=== PATIENT | female | born 2000 | race Caucasian/White ===

== ENCOUNTER 2024-11-10 16:55 | Emergency (ER) | payer BC, MEDICAID, SELFPAY ==
[2024-11-10 17:00] VITALS: BP 178/141; PULSE 110; RESP 16; TEMP 36.6; O2SAT 97; BMI 42.7
[2024-11-10 18:34] LABS: Basophils % 0.4 %; Eosinophils # 0.1 10^3/uL (0.0-0.8); Eosinophils % 0.6 %; Hematocrit 39.7 % (36-47); Lymphocytes # 2.5 10^3/uL (0.8-4.8); Lymphocytes % 29.3 %; Mean Corpuscular HGB Conc 33.5 g/dL (30-55); Mean Corpuscular Hemoglobin 28.5 pg (27-33); Mean Platelet Volume 9.3 fL (7.4-10.4); Monocytes # 0.5 10^3/uL (0.2-0.9); Monocytes % 5.7 %; Neutrophils # 5.47 10^3/uL (1.8-7.7); Neutrophils % 63.8 %; Nucleated Red Blood Cells % 0 %; Platelet Count 307 10^3/cmm (157-399); Red Blood Count 4.67 10^6/uL (3.85-5.65); Red Cell Distribution Width 12.7 % (12.1-15.1); White Blood Count 8.57 10^3/uL (3.29-11.43)
[2024-11-10 18:36] VITALS: BP 134/77; PULSE 90; O2SAT 97
--- NOTE | 2024-11-10 18:38 | CTR_ITS ---
PROCEDURE INFORMATION: Exam: CT Abdomen And Pelvis With Contrast Exam date and time: 11/10/2024 6:59 PM Age: 24 years old Clinical indication: Abdominal pain; Localized; Right; Prior surgery; Surgery date: 6+ months; Surgery type: Gb; C/O RT sided abd pain; Additional info: Rlq pain TECHNIQUE: Imaging protocol: Computed tomography of the abdomen and pelvis with contrast. Radiation optimization: All CT scans at this facility use at least one of these dose optimization techniques: automated exposure control; mA and/or kV adjustment per patient size (includes targeted exams where dose is matched to clinical indication); or iterative reconstruction. Contrast material: OMNI 350; Contrast volume: 100 ml; Contrast route: INTRAVENOUS (IV); COMPARISON: No relevant prior studies available. RADIATION DOSE METRICS: Total DLP (mGy-cm): 979.33 FINDINGS: Liver: Normal. No mass. Gallbladder and biliary ducts: There has been prior cholecystectomy. Pancreas: Normal. No ductal dilation. Spleen: Normal. No splenomegaly. Adrenal glands: Normal. No mass. Kidneys and ureters: Normal. No hydronephrosis. Stomach and bowel: Unremarkable. No obstruction. No mucosal thickening. Appendix: No evidence of appendicitis. Intraperitoneal space: Unremarkable. No free air. No significant fluid collection. Vasculature: Unremarkable. No abdominal aortic aneurysm. Lymph nodes: Unremarkable. No enlarged lymph nodes. Urinary bladder: Unremarkable as visualized. Reproductive: Unremarkable as visualized. Bones/joints: Unremarkable. No acute fracture. Soft tissues: Unremarkable. CT/CT abdomen pelvis w con* [id number] IMPRESSION: 1. No acute intra-abdominal process seen. 2. Prior cholecystectomy.
[2024-11-10 18:45] VITALS: RESP 18; O2SAT 98
[2024-11-10] MEDS: ondansetron 2 mg/ML SDV 2 mL 8 MG IVP (18:45)
[2024-11-10] MEDS: morphine 4 mg/mL SDV 1 mL IVP (18:45)
[2024-11-10 18:46] LABS: HCG, Serum Qual Negative (Negative)
[2024-11-10 18:49] LABS: Bacteria Urine Trace /hpf; Hyaline Casts Urine 1.65 /lpf; RBC Urine >100 /hpf (0-2); WBC Urine 0-5 /hpf (0-5)
[2024-11-10 18:51] LABS: Add Urine Microscopic? YES; Bilirubin Urine Neg (Negative); Blood Urine 3+ (Negative); Glucose Urine UA Norm (Normal); Ketones Urine 1+ (Negative); Leukocyte Esterase Urine Trace (Negative); Nitrate Urine Negative (Negative); Protein Urine Trace (Negative); Urine Appearance Clear (CLEAR); Urine Color Yellow (Yellow); Urobilinogen Urine Norm (Negative); pH Urine 5 (5-7)
[2024-11-10 18:52] LABS: Alanine Aminotransferase 23 U/L (0-33); Albumin Level 4.4 g/dL (3.5-5.2); Alkaline Phosphatase 62 U/L (35-105); Anion Gap 17.6 (5-19); Aspartate Amino Transferase 15 U/L (0-32); Blood Urea Nitrogen 6 mg/dL (6-20); Carbon Dioxide 21 mmol/L (22-29); Chloride 107 mmol/L (98-107); Creatinine Clr Calc Pharmacy 197.4109; Globulin 3.2 g/dL (1.3-4.6); Glomerular Filtration Rate 122.8 mL/min (90-130); Glucose 105 mg/dL (65-115); Lipase 13 U/L (13-60); Osmolality Calculated 292 mOsm/kg (285-295); Potassium 3.6 mmol/L (3.5-5.1); Sodium 142 mmol/L (136-145); Total Bilirubin 0.4 mg/dL (0.15-1.2); Total Protein 7.6 g/dL (6.6-8.7)
[2024-11-10] MEDS: iohexol 350 mg/mL 500 mL Btl (per mL) IV (19:00)
--- NOTE | 2024-11-10 19:19 | ED_ITS ---
HPI - Abdominal Pain 2 General: Chief Complaint: Abdominal Pain Stated Complaint: abd pain sent by Time Seen by Provider: 11/10/24 18:08 Source: patient Mode of arrival: ambulatory Limitations: no limitations History of Present Illness: Patient is a 24-year-old biological female presenting to the emergency department complaining of acute on chronic right sided abdominal pain. Patient states has been dealing with abdominal pain for months now, however this morning it especially worsened to the right side. Initially went to urgent care but was sent over here due to concerns of this being the appendix. However patient is known to me that the pain is to the right upper quadrant, states that she has had the gallbladder removed in the past. Noting 6-7 episodes of vomiting today associated with nausea, states that they chronically have diarrhea but this is not new. No fever, diaphoresis, anorexia, or other reported symptoms at this time. States that the pain has been intermittent throughout the day, will alternate between sharp/stabbing and dull/aching. No reported specific alleviating or exacerbating factors. Vitals unremarkable at time of examination. Stating that she is currently on her period. MD elicited complaint: abdominal pain Onset (ago): hour(s) Pain Consistency: intermittent Location: RUQ and RLQ Severity: severe Quality: stabbing, aching, sharp and dull Radiation: back Exacerbating factors: nothing Relieving factors: nothing Associated Symptoms: Reports diarrhea, nausea and vomiting; Denies bloating, change in stool character, chills, constipation, dysuria, fever(s) and hematochezia Related Data Home Medications ?Medication ?Instructions ?Recorded ?Confirmed hydroxyzine HCl 50 mg tablet 50 mg PO BID PRN 11/10/24 11/10/24 Allergies Allergy/AdvReac Type Severity Reaction Status Date / Time No Known Allergies Allergy Verified 11/10/24 16:35 Review of Systems 2 General: Reports: 10 or more systems reviewed and unremarkable except in HPI and below Const: Denies: fever(s), chills, change in appetite, change in weight or diaphoresis ENMT: Denies: throat pain or hoarseness Card: Denies: chest pain, palpitations or lightheadedness Resp: Denies: dyspnea, productive cough or wheezing GI: Reports: abdominal pain, nausea, vomiting and diarrhea; Denies: constipation, bloating, change in stool character or hematochezia : Denies: flank pain, difficulty voiding, dysuria, urinary frequency or urinary urgency Musc: Reports: back pain; Denies: neck pain Skin/Breast: Denies: rash or new lesions Neuro: Denies: headache(s) or dizziness PFSH ED 2 PFSH: Social History Smoking and tobacco/nicotine status: current every day tobacco/nicotine user Physical Exam 2 Const: COMMON NORMALS: no acute distress, patient oriented x3, no limitations, alert and well nourished GENERAL APPEARANCE: cooperative NUTRITIONAL APPEARANCE: obese ORIENTATION/CONSCIOUSNESS: Yes awake HENMT: COMMON NORMALS: normocephalic, atraumatic, hearing grossly normal bilaterally, external ears normal, Normal external nose present, Normal nasal mucous membranes and turbinates present and moist oral mucous membranes HEAD & SCALP: normocephalic and atraumatic NOSE: Normal external nose present and Normal nasal mucous membranes and turbinates present EXTERNAL EAR: Yes external ears normal Eye: COMMON NORMALS: Equal, round and reactive pupils present, EOMs intact bilaterally, conjunctivae normal and normal visual scott by confrontation C ONJUNCTIVA: Yes conjunctivae normal PUPIL: Yes Equal, round and reactive pupils present Neck/C-Spine: COMMON NORMALS: full ROM, supple, no meningeal signs and no JVD Resp: COMMON NORMALS: normal respiratory effort, No retractions, No use of accessory muscles and clear to auscultation bilaterally AUSCULTATION: clear to auscultation bilaterally, no crackles, no rales, no rhonchi and no wheezes Cardio: COMMON NORMALS: no JVD, regular rate, regular rhythm, S1 normal heart sound present, S2 normal heart sound present, No gallops present (Cardio), No clicks present (Cardio), No murmurs present (Cardio), No rub (Cardio) and Peripheral pulses 2+ throughout RATE: regular rate RHYTHM: regular rhythm HEART SOUNDS: S1 normal heart sound present and S2 normal heart sound present PERIPHERAL PULSES: Peripheral pulses 2+ throughout GI: COMMON NORMALS: Normal to inspection, nondistended, normoactive bowel sounds present, Soft to palpation, No hepatosplenomegaly present and no masses INSPECTION: Yes central obesity AUSCULTATION: Yes normoactive bowel sounds PALPATION: Yes Soft to palpation, Yes Tenderness to palpation present (GI) Details: RLQ and RUQ, No Guarding due to palpation present (GI), No Rigid due to palpation and Yes No hepatosplenomegaly present RECTAL EXAM: deferred : COMMON NORMALS: Yes no CVA tenderness BLADDER/KIDNEY EXAM: Yes no CVA tenderness Back/Pelvis: COMMON NORMALS: no CVA tenderness Extremity: COMMON NORMALS: normal to inspection and full ROM Neuro: COMMON NORMALS: patient oriented x3, moves all extremities, no focal motor deficits and no sensory deficits noted SENSORIUM/ORIENTATION: Yes alert MENINGEAL SIGNS: Yes no meningeal signs Psych: COMMON NORMALS: mental status grossly normal, cooperative and speech normal SPEECH: Yes normal speech Skin: COMMON NORMALS: no rashes or lesions noted GENERAL SKIN EXAM: no rashes or lesions noted Course 2 Vital Signs: Vital signs: Vital Signs Temperature 97.8 F 11/10/24 17:00 Pulse Rate 89 11/10/24 20:00 Respiratory Rate 18 11/10/24 18:45 Blood Pressure 109/85 11/10/24 20:00 Pulse Oximetry 96 11/10/24 20:00 Oxygen Delivery Me thod Room Air 11/10/24 20:00 MDM - Abdominal Pain Medical Decision Making Patient presented complaining of right-sided abdominal pain, history of cholecystectomy. Tender to palpation of the right side, rest of exam normal and vitals have been unremarkable. Her lab work was all normal, urinalysis unremarkable other than blood as she is currently on her menstrual cycle. CT did not show any acute findings. Ultimately unknown what is causing the pain, does not appear to be surgical or infectious and in no need of further evaluation here in the ED. Did encourage her to follow-up with her regular doctor, GI soft diet and to return with any new or worsening. Verbalized understanding to return precautions. Lab Data 11/10/24 18:20 11/10/24 18:20 Labs/Radiology: Radiology Impressions Abdomen/Pelvis CT 11/10/24 18:38 IMPRESSION: 1. No acute intra-abdominal process seen. 2. Prior cholecystectomy. Laboratory Results WBC 8.57 10^3/uL (3.29-11.43) 11/10/24 18:20 RBC 4.67 10^6/uL (3.85-5.65) 11/10/24 18:20 Hgb 13.30 g/dL (11.27-16.99) 11/10/24 18:20 Hct 39.7 % (36-47) 11/10/24 18:20 MCV 85.0 fl (85-98) 11/10/24 18:20 MCH 28.5 pg (27-33) 11/10/24 18:20 MCHC 33.5 g/dL (30-55) 11/10/24 18:20 RDW 12.7 % (12.1-15.1) 11/10/24 18:20 Plt Count 307 10^3/cmm (157-399) 11/10/24 18:20 MPV 9.3 fL (7.4-10.4) 11/10/24 18:20 Neut % (Auto) 63.8 % 11/10/24 18:20 Lymph % (Auto) 29.3 % 11/10/24 18:20 Gilliam % (Auto) 5.7 % 11/10/24 18:20 Eos % (Auto) 0.6 % 11/10/24 18:20 Baso % (Auto) 0.4 % 11/10/24 18:20 Neut # (Auto) 5.47 10^3/uL (1.8-7.7) 11/10/24 18:20 Lymph # (Auto) 2.5 10^3/uL (0.8-4.8) 11/10/24 18:20 Gilliam # (Auto) 0.5 10^3/uL (0.2-0.9) 11/10/24 18:20 Eos # (Auto) 0.1 10^3/uL (0.0-0.8) 11/10/24 18:20 Baso # (Auto) 0.0 10^3/uL (0.0-0.1) 11/10/24 18:20 Nucleated RBC % (auto) 0 % 11/10/24 18:20 Nucleated RBCs # 0.0 /100WBC 11/10/24 18:20 Sodium 142 mmol/L (136-145) 11/10/24 18:20 Potassium 3.6 mmol/L (3.5-5.1) 11/10/24 18:20 Chloride 107 mmol/L (98-107) 11/10/24 18:20 Carbon Dioxide 21 mmol/L (22-29) L 11/10/24 18:20 Anion Gap 17.6 (5-19) 11/10/24 18:20 BUN 6 mg/dL (6-20) 11/10/24 18:20 Creatinine 0.6 mg/dL (0.5-0.9) 11/10/24 18:20 GFR Calculation 122.8 mL/min (90-130) 11/10/24 18:20 Glucose 105 mg/dL (65-115) 11/10/24 18:20 Calculated Osmolality 292 mOsm/kg (285-295) 11/10/24 18:20 Calcium 9.0 mg/dL (8.5-10.5) 11/10/24 18:20 Total Bilirubin 0.4 mg/dL (0.15-1.2) 11/10/24 18:20 AST 15 U/L (0-32) 11/10/24 18:20 ALT 23 U/L (0-33) 11/10/24 18:20 Alkaline Phosphatase 62 U/L (35-105) 11/10/24 18:20 Total Protein 7.6 g/dL (6.6-8.7) 11/10/24 18:20 Albumin 4.4 g/dL (3.5-5.2) 11/10/24 18:20 Globulin 3.2 g/dL (1.3-4.6) 11/10/24 18:20 Lipase 13 U/L (13-60) 11/10/24 18:20 HCG, Qual Negative (Negative) 11/10/24 18:20 Urine Color Yellow (Yellow) 11/10/24 18:30 Urine Appearance Clear (CLEAR) 11/10/24 18:30 Urine pH 5 (5-7) 11/10/24 18:30 Ur Specific [place] 1.020 (1.005-1.030) 11/10/24 18:30 Urine Protein Trace (Negative) H 11/10/24 18:30 Urine Glucose (UA) Norm (Normal) 11/10/24 18:30 Urine Ketones 1+ (Negative) H 11/10/24 18:30 Urine Blood 3+ (Negative) A 11/10/24 18:30 Urine Nitrate Negative (Negative) 11/10/24 18: Urine Bilirubin Neg (Negative) 11/10/24 18:30 Urine Urobilinogen Norm mg/dL (Negative) 11/10/24 18:30 Ur Leukocyte Esterase Trace (Negative) A 11/10/24 18:30 Urine RBC >100 /hpf (0-2) H 11/10/24 18:30 Urine WBC 0-5 /hpf (0-5) 11/10/24 18:30 Ur Squamous Epith Cells 11-20 /hpf (0-5) H 11/10/24 18:30 Amorphous Sediment Not Reportable 11/10/24 18:30 Urine Bacteria Trace /hpf (NONE) 11/10/24 18:30 Hyaline Casts 1.65 /lpf 11/10/24 18:30 All radiology interpretation(s) finalized by discharge Discharge Plan Discharge Patient Disposition: Home Clinical Impression: Abdominal pain Qualifiers: Abdominal location: right upper quadrant Qualified Code(s): R10.11 - Right upper quadrant pain Condition: Stable Prescriptions: No Action hydroxyzine HCl 50 mg tablet 50 mg PO BID PRN Discharge Orders: Discharge ED (Routine); Ordered 11/10/24 Ordered By: David Hernandez Patient Instructions: Abdominal Pain (ED) Activity Restrictions/Additional Instructions: GI soft diet. Ibuprofen and Tylenol for pain. Follow-up with your regular doctor and return with any new or worsening. Stand Alone Forms: Work/School Release Print Language: Kazakh Coding Level of Care Code ED [employer] Pull[employer] for Janis Velázquez
[2024-11-10 20:00] VITALS: BP 109/85; PULSE 89; O2SAT 96
[2024-11-10 20:17] VITALS: BP 128/89; PULSE 72; O2SAT 97
== END 2024-11-10 20:18 | disposition home or self-care (01) ==
PROVIDERS: Emergency Medicine; Emergency Provider Physician Assistant
DX: R10.11 Right upper quadrant pain (principal); Z72.0 Tobacco use
CPT/HCPCS: 36415; 74177; 80053; 81001; 83690; 84703; 85025; 96374; 96375; 99285; J2270; J2405